=== PATIENT | male | born 1955 | race Caucasian/White ===

== ENCOUNTER 2017-12-16 13:45 | Outpatient (RCR) | payer MEDICARE, SELFPAY ==
[2017-12-09 14:05] VITALS: BP 99/66; PULSE 112; RESP 18; TEMP 36.6
--- NOTE | 2017-12-09 16:38 | HP.PCM_ITS ---
(1) Pressure ulcer of right heel, stage 1 Status: Acute Current Visit: Yes Code(s): L89.611 - Pressure ulcer of right heel, stage 1 (2) Paraplegia following spinal cord injury Status: Acute Current Visit: Yes Code(s): G82.20 - Paraplegia, unspecified History of Present Illness Date of Service: 12/09/17 Chief Complaint: Follow-up on left lateral malleolus ulcer History of Wound: 62-year-old white man with history of paraplegia and was discharged from the wound center in February fot left lateral ankle pressure injury. Noted about a week ago that after picking a callus off his heel, he developed a blister which he popped with a needle. He subsequently developed a draining ulcer. As of yesterday, he has had no drainage. He almost canceled his appointment today, but has a history of MRSA, so he wanted to make sure he was not getting an infection. Today, his ulceration is covered with a thin layer of epithelial tissue. He has been offloading with pillows behind his legs , keeps his heels and ankles floating. Past Medical History Past Medical History: Chronic Problems Decubitus ulcer of left ankle, stage 2 (Chronic) Surgical History: noncontributory Allergies/Adverse Reactions: Allergies cephalexin Allergy (Verified 12/09/17 14:13) Rash Sulfa (Sulfonamide Antibiotics) Allergy (Verified 12/09/17 14:13) Hives Home Medications: Ambulatory Orders Medication Instructions Recorded Baclofen 20 mg PO TID 12/26/16 Clonazepam [Klonopin] 1 mg PO QHS 12/26/16 Multivitamin [Daily Multiple 1 each PO QHS 12/26/16 Vitamin] Fluticasone 0.05% [Flonase Nasal 2 spray NASAL DAILY PRN 12/09/17 [place]] Magnesium 200 mg PO QHS 12/09/17 Nitrofurantoin Macrocrystal 50 mg PO QHS 12/09/17 [Macrodantin] Lives: Spouse/ Significant Other Smoking Status: Former smoker Tobacco Use: Non-smoker Alcohol: Rare Drugs: None Review of Systems Constitutional: Denies: Chills, Fever, Weight Change Eyes: Denies: Pain, Vision Change HEENT: Denies: Difficulty Hearing, Difficulty Swallowing, Sinus Congestion Cardiovascular: Denies: Chest Pain, Palpitations Respiratory: Denies: Cough, Shortness of Breath Gastrointestinal: Denies: Diarrhea, Nausea, Vomiting Genitourinary: Denies: Dysuria, Hematuria Musculoskeletal: Reports: - - Paraplegia Skin: Reports: Wounds - healed wounds L ankle, R heel Neurological: Reports: - - Paraplegia Psychiatric: Denies: Anxiety, Depression Endocrine: Denies: Heat/ Cold Intolerance, Polydipsia, Polyuria Hematologic/ Lymphatic: Denies: Easy Bruising, Easy Bleeding - Physical Exam Vital Signs Temp Pulse Resp BP 98 F 112 H 18 99/66 12/09/17 14:05 12/09/17 14:05 12/09/17 14:05 12/09/17 14:05 General: Alert, Oriented x3, Cooperative, No apparent distress Extremities: No clubbing, No cyanosis, No edema, Capillary Refill Less than 3 Seconds, No Calf Tenderness, Peripheral Pulses Normal Skin: No rashes, No breakdown, Ulcer/ Wound - Healed ulcers R heel, L lateral ankle Wound Measurements and Assessment WC - Nurse 1 - General Ulcer Measurement Start: 12/09/17 13:49 Freq: Status: Active Protocol: Activity Type Activity Date Activity User E-Sign Co-Sign Detail Recorded Client Recorded Date Recorded By Document 12/09/17 14:05 [facility] [id number] 12/09/17 14:10 [facility] 12/09/17 14:05 Wound Center Nurse 1 [Ulcer Assessment Protocol: HERB.WD.LOC] #5- RT MEDIAL HEEL -Combined with other wound No -Current Size (cm) - Length 1.7 -Current Size (cm) - Width 2.8 -Current Size (cm) - Depth 0.1 -Total Square Cm 4.76 -Date of Last Picture (Recall this 12/09/17 field) -Photo Taken Yes -Tunneling No -Undermining/Tunneling No -Exudate Amt Small (1-33%) -Exudate Type Serosanguineous -Wound Margin Distinct, Outline Attached -Granulation Amt Large (67-100%) -Granulation Quality Red -Slough/Fibrin No -Necrosis Amt None Present (0 %) -Structure Exposed None/Limited to Skin Breakdown -Texture ([place]-wound Skin Appearance) Callus -Moisture ([place]-wound Skin Appearance Dry/Scaly ) -Color ([place]-wound Skin Appearance) Erythema -Temperature ([place]-wound Skin No Abnormality Appearance) (Pt Warm) -Tenderness on Palpation ([place]-wound No Skin Appearance) -Ulcer Cleansing Rinsed/ Irrigated with Saline -Foul Odor after Cleansing No -Anesthetic Used 4% Lidocaine Solution WC - Nurse 2 - General Ulcer CM Notes Start: 12/09/17 13:49 Freq: Status: Active Protocol: Activity Type Activity Date Activity User E-Sign Co-Sign Detail Recorded Client Recorded Date Recorded By Document 12/09/17 14:30 MW [id number] 12/09/17 14:48 MW 12/09/17 14:30 Wound Center Nurse 2 [Procedure/Treatment] -Time 14:31 -Correct Patient Yes -Correct Side, Site, Position Yes -Correct Procedure Yes -Procedure Performed No -Post Debridement Size (cm) - Length 2.0 -Post Debridement Size (cm) - Width 3.2 -Post Debridement Size (cm) - Depth 0.1 -Total Square Cm 6.40 -Wound/Ulcer Outcome Not Healed -Ulcer Cleansing Rinsed/ Irrigated with Saline -Foul Odor after Cleansing No -Bioengineered Tissue No -Cetacaine [place] No -Bleeding Controlled with Pressure -Treatment Response Procedure Tolerated Well [See Physician Procedure note for Specifics] Pain Scale: 0-10 Numeric [Pain] -Is Patient Pain Free? Yes Musculoskeletal: No Tenderness to Palpation of Joints or Extremities Neurological: - - paraplegia Psych/Mental Status: Alert and oriented to time, place, person, mood and affect - wnl Debridement Note Post-Debridement Measurements/Treatment HERB - Nurse 2 - General Ulcer CM Notes Start: 12/09/17 13:49 Freq: Status: Active Protocol: Activity Type Activity Date Activity User E-Sign Co-Sign Detail Recorded Client Recorded Date Recorded By Document 12/09/17 14:30 MW [id number] 12/09/17 14:48 MW 12/09/17 14:30 Wound Center Nurse 2 #5- RT MEDIAL HEEL -Time 14:31 -Correct Patient Yes -Correct Side, Site, Position Yes -Correct Procedure Yes -Procedure Performed No -Post Debridement Size (cm) - Length 2.0 -Post Debridement Size (cm) - Width 3.2 -Post Debridement Size (cm) - Depth 0.1 -Total Square Cm 6.40 -Wound/Ulcer Outcome Not Healed -Ulcer Cleansing Rinsed/ Irrigated with Saline -Foul Odor after Cleansing No -Bioengineered Tissue No -Cetacaine [place] No -Bleeding Controlled with Pressure -Treatment Response Procedure Tolerated Well Pain Scale: 0-10 Numeric Is Patient Pain Free? Yes No debridement was completed today Assessment/Plan Active Problems Paraplegia following spinal cord injury (Acute) Pressure ulcer of right heel, stage 1 (Acute) Assessment: See diagnoses Plan: New pt exam. There is a healed stage 1 pressure injury R heel. Discussed importance of offloading. Apply hydrogel and adaptic today in clinic. Starting tomorrow, apply protective ointment such as Aquaphor Healing Ointment BID-TID to healed ulcers indefinitely. For hx MRSA colonization, bathe with hibiclens daily x 2 weeks then weekly for 1 year; Rx mupirocin 2% ointment, 22 gm, apply in nares with q-tip BID x 2 weeks. No clinical signs of acute bacterial infection bilateral lower extremities today, so no PO atbx prescribed. Pt does not have any open wounds on the lower extremities. Pt's reason for his appointment today is his R heel, but this is covered with a thin layer of epithelial tissue and is not open today. D/w pt that this thin layer of skin is quite fragile and he needs to protect the area well. Return in 1 week, if ulcer remains healed, he will be discharged at that time and can then follow up as needed.
[2017-12-16 13:45] VITALS: BP 130/81; PULSE 98; RESP 18; TEMP 36.2
--- NOTE | 2017-12-16 16:07 | PCM.WC.PN ---
(1) Pressure ulcer of right heel, stage 1 Status: Acute Current Visit: Yes Code(s): L89.611 - Pressure ulcer of right heel, stage 1 (2) Paraplegia following spinal cord injury Status: Acute Current Visit: Yes Code(s): G82.20 - Paraplegia, unspecified Type of Wound Date of Service: 12/16/17 Chief Complaint: Follow-up on left lateral malleolus ulcer History of Wound: 62-year-old white man with history of paraplegia and was discharged from the wound center in February fot left lateral ankle pressure injury. Noted about a week ago that after picking a callus off his heel, he developed a blister which he popped with a needle. He subsequently developed a draining ulcer. As of yesterday, he has had no drainage. He almost canceled his appointment today, but has a history of MRSA, so he wanted to make sure he was not getting an infection. Today, his ulceration is covered with a thin layer of epithelial tissue. He has been offloading with pillows behind his legs, keeps his heels and ankles floating. 12/16/17--Notes a small dot of clear drainage in the center, but the remainder of the area remains healed. Has been using collagen hydrogel, adaptic, dry gauze daily. Continues to offload. Progress of Wound: Small superficial area open in the center. - Physical Exam Vital Signs Temp Pulse Resp BP 97.1 F L 98 18 130/81 H 12/16/17 13:45 12/16/17 13:45 12/16/17 13:45 12/16/17 13:45 General: Alert, Oriented x3, Cooperative, No apparent distress Skin: Ulcer/ Wound - Medial/posterior R heel with no erythema, no pus, no malodor, no increased warmth, no TTP of wound or jeanette-wound area. No clinical signs of acute bacterial infection noted. See nurse's wound assessment. Wound Measurements and Assessment HERB - Nurse 1 - General Ulcer Measurement Start: 12/09/17 13:49 Freq: Status: Active Protocol: Activity Type Activity Date Activity User E-Sign Co-Sign Detail Recorded Client Recorded Date Recorded By Document 12/16/17 13:45 [facility] [id number] 12/16/17 13:48 [facility] 12/16/17 13:45 Wound Center Nurse 1 [Ulcer Assessment Protocol: HERB.WD.LOC] #5- RT MEDIAL HEEL -Combined with other wound No -Current Size (cm) - Length 0.1 -Current Size (cm) - Width 0.1 -Current Size (cm) - Depth 0.1 -Total Square Cm 0.01 -Photo Taken No -Epithelialization None Present -Tunneling No -Undermining/Tunneling No -Circular Undermining No -Exudate Amt None Present (0 %) -Wound Margin Flat & Intact -Granulation Amt Large (67-100%) -Granulation Quality [place] -Slough/Fibrin No -Structure Exposed N/A -Texture ([place]-wound Skin Appearance) Assessed Callus -Moisture ([place]-wound Skin Appearance Assessed ) -Temperature ([place]-wound Skin No Abnormality Appearance) (Pt Warm) -Tenderness on Palpation ([place]-wound No Skin Appearance) -Ulcer Cleansing Rinsed/ Irrigated with Saline -Foul Odor after Cleansing No -Anesthetic Used 4% Lidocaine Solution [Edema Assessment] -Lower Limb Edema Present NA HERB - Nurse 2 - General Ulcer CM Notes Start: 12/09/17 13:49 Freq: Status: Active Protocol: Activity Type Activity Date Activity User E-Sign Co-Sign Detail Recorded Client Recorded Date Recorded By Document 12/16/17 14:39 MW [id number] 12/16/17 14:41 MW 12/16/17 14:39 Wound Center Nurse 2 [Procedure/Treatment] #5- RT MEDIAL HEEL -Time 14:39 -Correct Patient Yes -Correct Side, Site, Position Yes -Correct Procedure Yes -Procedure Performed No -Post Debridement Size (cm) - Length 0.1 -Post Debridement Size (cm) - Width 0.1 -Post Debridement Size (cm) - Depth 0.1 -Total Square Cm 0.01 -Wound/Ulcer Outcome Not Healed -Ulcer Cleansing Rinsed/ Irrigated with Saline -Foul Odor after Cleansing No -Bioengineered Tissue No -Cetacaine [place] No -Bleeding Controlled with NA -Treatment Response Procedure Tolerated Well [See Physician Procedure note for Specifics] Pain Scale: 0-10 Numeric [Pain] -Is Patient Pain Free? Yes Debridement Note Post-Debridement Measurements/Treatment HERB - Nurse 2 - General Ulcer CM Notes Start: 12/09/17 13:49 Freq: Status: Active Protocol: Activity Type Activity Date Activity User E-Sign Co-Sign Detail Recorded Client Recorded Date Recorded By Document 12/09/17 14:30 MW [id number] 12/09/17 14:48 MW Document 12/16/17 14:39 MW [id number] 12/16/17 14:41 MW 12/09/17 12/16/17 14:30 14:39 Wound Center Nurse 2 #5- RT MEDIAL HEEL -Time 14:31 14:39 -Correct Patient Yes Yes -Correct Side, Site, Position Yes Yes -Correct Procedure Yes Yes -Procedure Performed No No -Post Debridement Size (cm) - Length 2.0 0.1 -Post Debridement Size (cm) - Width 3.2 0.1 -Post Debridement Size (cm) - Depth 0.1 0.1 -Total Square Cm 6.40 0.01 -Wound/Ulcer Outcome Not Healed Not Healed -Ulcer Cleansing Rinsed/ Rinsed/ Irrigated with Irrigated with Saline Saline -Foul Odor after Cleansing No No -Bioengineered Tissue No No -Cetacaine [place] No No -Bleeding Controlled with Pressure NA -Treatment Response Procedure Procedure Tolerated Well Tolerated Well Pain Scale: 0-10 Numeric Is Patient Pain Free? Yes Yes No debridement was completed today Assessment/Plan Active Problems Paraplegia following spinal cord injury (Acute) Pressure ulcer of right heel, stage 1 (Acute) Assessment: See diagnoses Plan: Exam. A total of 15minutes was spent face to face with the patient, and over half of that time was spent on counseling, coordination of care, and discussing his diagnoses. Pt noted a small amount of drainage, so he has been applying collagen hydrogel, adaptic, dry gauze daily. Notes daily improvement, and drainage almost reasolved. Continue this until drainage resolves, then apply aquaphor or vaseline BID-TID to healed ulcer. Discussed importance of offloading. Apply hydrogel and adaptic today in clinic. Return in 2 weeks, if ulcer is again healed, he will be discharged at that time and can then follow up as needed.
--- NOTE | 2017-12-16 16:11 | PN.PCM_ITS ---
(1) Pressure ulcer of right heel, stage 1 Status: Acute Current Visit: Yes Code(s): L89.611 - Pressure ulcer of right heel, stage 1 (2) Paraplegia following spinal cord injury Status: Acute Current Visit: Yes Code(s): G82.20 - Paraplegia, unspecified Type of Wound Date of Service: 12/16/17 Chief Complaint: Follow-up on left lateral malleolus ulcer History of Wound: 62-year-old white man with history of paraplegia and was discharged from the wound center in February fot left lateral ankle pressure injury. Noted about a week ago that after picking a callus off his heel, he developed a blister which he popped with a needle. He subsequently developed a draining ulcer. As of yesterday, he has had no drainage. He almost canceled his appointment today, but has a history of MRSA, so he wanted to make sure he was not getting an infection. Today, his ulceration is covered with a thin layer of epithelial tissue. He has been offloading with pillows behind his legs , keeps his heels and ankles floating. 12/16/17--Notes a small dot of clear drainage in the center, but the remainder of the area remains healed. Has been using collagen hydrogel, adaptic, dry gauze daily. Continues to offload. Progress of Wound: Small superficial area open in the center. - Physical Exam Vital Signs Temp Pulse Resp BP 97.1 F L 98 18 130/81 H 12/16/17 13:45 12/16/17 13:45 12/16/17 13:45 12/16/17 13:45 General: Alert, Oriented x3, Cooperative, No apparent distress Skin: Ulcer/ Wound - Medial/posterior R heel with no erythema, no pus, no malodor, no increased warmth, no TTP of wound or jeanette-wound area. No clinical signs of acute bacterial infection noted. See nurse's wound assessment. Wound Measurements and Assessment HERB - Nurse 1 - General Ulcer Measurement Start: 12/09/17 13:49 Freq: Status: Active Protocol: Activity Type Activity Date Activity User E-Sign Co-Sign Detail Recorded Client Recorded Date Recorded By Document 12/16/17 13:45 [facility] [id number] 12/16/17 13:48 [facility] 12/16/17 13:45 Wound Center Nurse 1 [Ulcer Assessment Protocol: HERB.WD.LOC] #5- RT MEDIAL HEEL -Combined with other wound No -Current Size (cm) - Length 0.1 -Current Size (cm) - Width 0.1 -Current Size (cm) - Depth 0.1 -Total Square Cm 0.01 -Photo Taken No -Epithelialization None Present -Tunneling No -Undermining/Tunneling No -Circular Undermining No -Exudate Amt None Present (0 %) -Wound Margin Flat & Intact -Granulation Amt Large (67-100%) -Granulation Quality [place] -Slough/Fibrin No -Structure Exposed N/A -Texture ([place]-wound Skin Appearance) Assessed Callus -Moisture ([place]-wound Skin Appearance Assessed ) -Temperature ([place]-wound Skin No Abnormality Appearance) (Pt Warm) -Tenderness on Palpation ([place]-wound No Skin Appearance) -Ulcer Cleansing Rinsed/ Irrigated with Saline -Foul Odor after Cleansing No -Anesthetic Used 4% Lidocaine Solution [Edema Assessment] -Lower Limb Edema Present NA HERB - Nurse 2 - General Ulcer CM Notes Start: 12/09/17 13:49 Freq: Status: Active Protocol: Activity Type Activity Date Activity User E-Sign Co-Sign Detail Recorded Client Recorded Date Recorded By Document 12/16/17 14:39 MW [id number] 12/16/17 14:41 MW 12/16/17 14:39 Wound Center Nurse 2 [Procedure/Treatment] #5- RT MEDIAL HEEL -Time 14:39 -Correct Patient Yes -Correct Side, Site, Position Yes -Correct Procedure Yes -Procedure Performed No -Post Debridement Size (cm) - Length 0.1 -Post Debridement Size (cm) - Width 0.1 -Post Debridement Size (cm) - Depth 0.1 -Total Square Cm 0.01 -Wound/Ulcer Outcome Not Healed -Ulcer Cleansing Rinsed/ Irrigated with Saline -Foul Odor after Cleansing No -Bioengineered Tissue No -Cetacaine [place] No -Bleeding Controlled with NA -Treatment Response Procedure Tolerated Well [See Physician Procedure note for Specifics] Pain Scale: 0-10 Numeric [Pain] -Is Patient Pain Free? Yes Debridement Note Post-Debridement Measurements/Treatment HERB - Nurse 2 - General Ulcer CM Notes Start: 12/09/17 13:49 Freq: Status: Active Protocol: Activity Type Activity Date Activity User E-Sign Co-Sign Detail Recorded Client Recorded Date Recorded By Document 12/09/17 14:30 MW [id number] 12/09/17 14:48 MW Document 12/16/17 14:39 MW [id number] 12/16/17 14:41 MW 12/09/17 12/16/17 14:30 14:39 Wound Center Nurse 2 #5- RT MEDIAL HEEL -Time 14:31 14:39 -Correct Patient Yes Yes -Correct Side, Site, Position Yes Yes -Correct Procedure Yes Yes -Procedure Performed No No -Post Debridement Size (cm) - Length 2.0 0.1 -Post Debridement Size (cm) - Width 3.2 0.1 -Post Debridement Size (cm) - Depth 0.1 0.1 -Total Square Cm 6.40 0.01 -Wound/Ulcer Outcome Not Healed Not Healed -Ulcer Cleansing Rinsed/ Rinsed/ Irrigated with Irrigated with Saline Saline -Foul Odor after Cleansing No No -Bioengineered Tissue No No -Cetacaine [place] No No -Bleeding Controlled with Pressure NA -Treatment Response Procedure Procedure Tolerated Well Tolerated Well Pain Scale: 0-10 Numeric Is Patient Pain Free? Yes Yes No debridement was completed today Assessment/Plan Active Problems Paraplegia following spinal cord injury (Acute) Pressure ulcer of right heel, stage 1 (Acute) Assessment: See diagnoses Plan: Exam. A total of 15minutes was spent face to face with the patient, and over half of that time was spent on counseling, coordination of care, and discussing his diagnoses. Pt noted a small amount of drainage, so he has been applying collagen hydrogel, adaptic, dry gauze daily. Notes daily improvement, and drainage almost reasolved. Continue this until drainage resolves, then apply aquaphor or vaseline BID-TID to healed ulcer. Discussed importance of offloading. Apply hydrogel and adaptic today in clinic. Return in 2 weeks, if ulcer is again healed, he will be discharged at that time and can then follow up as needed.
== END 2017-12-17 23:59 ==
LOC: WC 13:45
PROVIDERS: Family Provider Internal Medicine; PCP Internal Medicine; Visit Provider Podiatrist Foot & Ankle Surgery
DX: L89.611 Pressure ulcer of right heel, stage 1 (principal); G82.20 Paraplegia, unspecified; Z86.14 Personal history of Methicillin resistant Staphylococcus aureus infection; L89.522 Pressure ulcer of left ankle, stage 2; Z87.891 Personal history of nicotine dependence
CPT/HCPCS: 99212; 99213; G0463

== ENCOUNTER → 2021-11-05 13:55 | Outpatient (CLI) | payer MEDICARE, SELFPAY | PROVIDERS: PCP Family Medicine; Visit Provider Physician Assistant Surgical | DX: Z11.52 Encounter for screening for COVID-19 (principal) | CPT/HCPCS: 87635; U0005; U0003 ==

== ENCOUNTER 2022-12-27 09:56 | Outpatient (RCR) | payer MEDICARE, SELFPAY ==
[2022-12-27 10:18] VITALS: BP 140/80; PULSE 83; TEMP 36.2; BMI 20.3
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
== END 2022-12-27 14:22 | disposition home or self-care (01) ==
LOC: WC 09:56
PROVIDERS: PCP Family Medicine; Visit Provider Physician Assistant
DX: L89.151 Pressure ulcer of sacral region, stage 1 (principal); G82.20 Paraplegia, unspecified; Z87.891 Personal history of nicotine dependence; E78.5 Hyperlipidemia, unspecified
CPT/HCPCS: 99214; G0463

== ENCOUNTER 2025-08-30 07:51 | Emergency (ER) | payer MEDICARE, SELFPAY ==
[2025-08-30] VITALS (9 sets, daily range): BP systolic 113–160; BP diastolic 67–88; PULSE 55–76; RESP 16–18; TEMP 36.4–36.6; O2SAT 100; BMI 19.5
--- NOTE | 2025-08-30 08:09 | CT_ITS ---
PROCEDURE: STROKE CTA HEAD AND NECK W/CON 08/30/2025 REASON FOR EXAM: NEURO DEFICIT, ACUTE, STROKE SUSPECTED TECHNIQUE: Procedure Code: CTCTA.ST.HN Modality: CT Procedure: STROKE CTA HEAD AND NECK W/CON Multiplanar Sagittal and Coronal images were obtained. 3D post processing was performed CONTRAST: Isovue 370 VOLUME: 100 mL One or more dose reduction techniques were used (e.g., Automated exposure control, adjustment of the mA and/or kV according to patient size, use of iterative reconstruction technique). RADIATION DOSE SUMMARY: CTDlvol: 21 mGy DLP: 688.26 mGycm COMPARISON: Prior unenhanced CT scan of the brain done earlier in the day. FINDINGS: Aortic Arch: Normal size and branching pattern. Mild atherosclerotic plaque. Brachiocephalic and Subclavians: Mild atherosclerotic plaque without significant stenosis. RIGHT Carotid: Right CCA: Unremarkable. Right ICA: Unremarkable. Right ECA: Unremarkable. LEFT Carotid: Left CCA: Unremarkable. Left ICA: Minimal plaque formation. Maximum stenosis (NASCET): Less than 10% % Left ECA: Unremarkable. Vertebrals: Codominant. Arise from the subclavians. Both vertebrals form the basilar. RIGHT Vertebral: Unremarkable. LEFT Vertebral: Unremarkable. Anatomy: [place] anatomy is normal. Aneurysm or avm: I suspect a 2.9 mm aneurysm in a branch of the right middle cerebral artery in the region of the lateral right posterior frontal lobe in branches along the sylvian fissure. Anterior cerebral arteries: Unremarkable: Middle cerebral arteries: Unremarkable. Basilar artery: Unremarkable. Posterior cerebral arteries: Unremarkable. Other major branches of the posterior circulation: Unremarkable. Major venous structures: Unremarkable. Other findings: Neck: Lungs: Bones: CT/STROKE CTA Head AND Neck W/Con IMPRESSION: Findings suggestive of a 2.9 mm aneurysm in the branch of the right middle cere bral artery in the lateral right posterior frontal lobe just superior to the sylvian fissure. Stroke Alert: STROKE CTA HEAD AND NECK W/CON 2.9 mm aneurysm Right middle cereb ral artery superior to Sylvian fissure The critical findings in the findings and impression above were relayed directl y by me by telephone to Nathan Concepcion on 08/30/2025 at 9:45 am with readback verification. Reading Location: [place] [id number]
--- NOTE | 2025-08-30 08:09 | CT_ITS ---
PROCEDURE: STROKE BRAIN/HEAD WITHOUT CONT N/A REASON FOR EXAM: NEURO DEFICIT, ACUTE, STROKE SUSPECTED TECHNIQUE: Procedure Code: CTBR.ST Modality: CT Procedure: STROKE BRAIN/HEAD WITHOUT CONT Coronal and Sagittal reconstruction series were provided. One or more dose reduction techniques were used (e.g., Automated exposure control, adjustment of the mA and/or kV according to patient size, use of iterative reconstruction technique. RADIATION DOSE SUMMARY: CTDlvol: 44.99 mGy DLP: 796.11 mGycm COMPARISON: None FINDINGS: Brain: There is a 1.1 cm 1.1 cm focus of increased attenuation in the vertex of the right parietal lobe medially. Minimal surrounding edema. Focal bleed should be ruled out. Possible amyloid. CSF Spaces: Mild generalized cerebral atrophy Sinuses/Mastoids: Clear at visualized levels Bones: No abnormality. CT/STROKE Brain/Head without Cont IMPRESSION: Findings suggestive of a focal bleed measuring 1.1 cm 1.1 cm in the superior as pect of the right parietal lobe. Possible amyloid. Stroke Alert: Focal bleed Right parietal lobe. The critical findings in the findings and impression above were relayed directl y by me by telephone to Nathan Concepcion on 08/30/2025 at 9:21 am with readback verification. Recommend question amyloid. In Reading Location: [place] [address]
--- NOTE | 2025-08-30 08:09 | EKG12_ITS ---
Test Reason : NEURO SX Blood Pressure : */* mmHG Vent. Rate : 68 BPM Atrial Rate : 68 BPM P-R Int : 180 ms QRS Dur : 90 ms QT Int : 416 ms P-R-T Axes : 69 50 62 degrees QTcB Int : 442 ms Normal sinus rhythm Minimal voltage criteria for LVH, may be normal variant ( Sokolow-Bull ) Borderline ECG Confirmed by CATHY IBARRA, GISELE ([id number]), content editor GABE DOHERTY ([id number]) on 08/31/2025 8:23:14 AM Referred By: TB Confirmed By: GISELE MORGAN MD
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
[2025-08-30 09:13] LABS: Hematocrit 37.5 % (40-54); Hemoglobin 12.1 g/dL (13.0-16.5); Immature Granulocytes Count 0.010 X10^3/uL (0.0-0.0); Mean Corp Hgb Conc 32.3 g/dL (32-36); Mean Corpuscular Volume 92.6 fL (80-94); Mean Platelet Vol. 10.1 fl (6.2-12.0); NRBC Flagged by Analyzer 0 % (0-5); Platelet Count 247 K/mm3 (150-450); Prothrombin Time (Protime)PT. 13.2 SECONDS (11.7-14.9); RBC Distribution Width CV 13.2 % (11.6-14.6); RBC Distribution Width SD 44.3 fl (35.1-43.9); Red Blood Count 4.05 M/mm3 (4.6-6.2); White Blood Count 4.5 K/mm3 (4.4-11.0)
[2025-08-30 09:14] LABS: Partial Thromboplast Time 27.4 Seconds (24.1-36.2)
--- NOTE | 2025-08-30 09:15 | RAD_ITS ---
PROCEDURE: CHEST 1 VIEW 08/30/2025 REASON FOR EXAM: NEURO DEFICIT, ACUTE, STROKE SUSPECTED TECHNIQUE: Frontal view of the chest. COMPARISON: None FINDINGS: Hardware: EKG electrodes are seen. More karan fixation is seen throughout the thoracic spine for scoliosis correction. Heart: The heart size is normal. Lungs: Hyperinflation. The lungs are clear. Bones: Degenerative changes are identified within the thoracic spine. RAD/Chest 1 View IMPRESSION: Hyperinflation. The lungs are clear. Reading Location: [place] [address]
[2025-08-30] MEDS: 0.9% Normal Saline (500mL Bag) 500 ML 999 ML IV (09:44)
--- NOTE | 2025-08-30 09:59 | PCA ---
CALLED [facility] @ 0770 FOR TRANSFER TO [facility]. PATIENT NEEDS ICU AND NEEDS TO FLY. SENT FACE SHEET AND PUSHED IMAGES
== END 2025-08-30 11:09 | disposition other institution (70) ==
PROVIDERS: Emergency Provider Emergency Medicine; PCP Family Medicine; Visit Provider Emergency Medicine
DX: I62.9 Nontraumatic intracranial hemorrhage, unspecified (principal); G82.20 Paraplegia, unspecified; I10 Essential (primary) hypertension; R47.81 Slurred speech; Z87.891 Personal history of nicotine dependence; I67.1 Cerebral aneurysm, nonruptured; E78.5 Hyperlipidemia, unspecified
CPT/HCPCS: 70450; 70496; 70498; 71045; 82962; 85025; 85610; 85730; 93005; 96361; 96374; 99285; Q9967

== ENCOUNTER 2025-09-17 02:44 | Emergency (ER) | payer MEDICARE, SELFPAY ==
[2025-09-17] VITALS (16 sets, daily range): BP systolic 63–105; BP diastolic 42–82; PULSE 62–89; RESP 12–23; TEMP 35.1–37.3; O2SAT 96–100; BMI 19.4
--- NOTE | 2025-09-17 03:10 | EX.ED.DYSGE1 ---
HPI History of Present Illness Chief Complaint: Seizure Informant: patient and spouse/S.O. Narrative Narrative: Patient is a 70-year-old male with past medical history of paraplegia status post spinal cord injury cavernosum angiomas and hyperlipidemia. He was seen in our facility roughly 2 weeks ago secondary to seizure activity and at that time there was concern he had a ruptured aneurysm. He was sent to [facility] and he states that while there the MRI revealed he did not have an aneurysm but stable brain lesions. He states he was placed on Keppra and Vimpat and has been taking those as directed. He states that he has had increased shaking of his jaw and arms which he states is consistent with his focal seizures. His states however that in the last 24 hours or so he has had a fever up to 101 and that is the main reason for presentation this evening/morning. Patient also reports that he fell roughly a week ago and landed on his right knee/leg and at that time had sudden onset of swelling and bruising. He states he did not have the trauma looked at however and that despite giving it 1 week there has been no improvement in the swelling or bruising. [facility] Medical History Paraplegia Hyperlipemia Cavernous angioma Home Medications ?Medication ?Instructions ?Recorded ?Last Taken ?Type baclofen 20 mg tablet 20 mg PO TID 12/26/16 Unknown History clonazepam 1 mg tablet 1 mg PO QHS 12/26/16 Unknown History multivitamin (Daily Multiple 1 ea PO QHS 12/26/16 Unknown History tablet) clonazepam 0.5 mg tablet (Klonopin) 0.5 mg PO DAILY 09/17/25 Unknown History lacosamide 150 mg tablet (Vimpat) 150 mg PO BID 09/17/25 Unknown History levetiracetam 1,000 mg tablet 1,500 mg PO BID 09/17/25 Unknown History (Keppra) pregabalin 150 mg capsule (Lyrica) 150 mg PO BID 09/17/25 Unknown History Allergy/AdvReac Type Severity Reaction Status Date / Time cephalexin Allergy Rash Verified 12/09/17 14:13 Sulfa (Sulfonamide Allergy Hives Verified 12/09/17 14:13 Antibiotics) Family History Other Anxiety Familial cavernous cerebral angioma Surgical History History of spinal surgery Social History Smoking Status: Former smoker alcohol intake: never substance use type: does not use what type of physical activity do you participate in: other frequency: daily ROS ROS ED Constitutional Constitutional ED: Reports chills and fever(s) Eyes Eyes: Denies change in vision ENT ENT ED: Denies ear pain, rhinorrhea or sore throat Cardiovascular Cardiovascular: Denies chest pain Respiratory/Chest Respiratory/Chest: Denies cough or dyspnea Gastrointestinal Gastrointestinal: Denies abdominal pain, diarrhea, nausea or vomiting Musculoskeletal Musculoskeletal: Reports other Details: Positive right leg swelling Integumentary Reports other Details: Positive right leg swelling and bruising Known stage I sacral cubitus ulcer Neurologic Neurologic: Reports other Details: Positive focal seizures ; Denies headache(s) Hematologic/Lymphatic Hematologic/Lymphatic: Denies easy bleeding or easy bruising EXAM Physical Exam Const Vital Signs: 09/17/25 02:45 09/17/25 02:57 09/17/25 03:44 Temperature 98.5 F Temperature Source Oral Pulse Rate 89 69 Respiratory Rate 18 17 Blood Pressure 63/45 L 72/42 L 100/62 Blood Pressure Mean 51 52 74 Blood Pressure Source Blood Pressure Position Blood Pressure Location Pulse Ox 98 100 Oxygen Delivery Method Room Air Room Air 09/17/25 04:00 09/17/25 05:00 09/17/25 05:33 Temperature 97.6 F L 96.3 F L Temperature Source Oral Axillary Pulse Rate 73 68 64 Respiratory Rate 20 H 12 16 Blood Pressure 102/58 L 96/60 83/52 L Blood Pressure Mean 72 72 62 Blood Pressure Source Monitor Blood Pressure Position Semi-Fowlers Blood Pressure Location Right Arm Pulse Ox 100 96 100 Oxygen Delivery Method Room Air Room Air Room Air 09/17/25 05:48 09/17/25 06:00 09/17/25 06:16 Temperature 96.8 F L 95.3 F L Temperature Source Temporal Core Pulse Rate 63 62 Respiratory Rate 12 14 Blood Pressure 86/56 L 87/57 L Blood Pressure Mean 66 67 Blood Pressure Source Monitor Blood Pressure Position Semi-Fowlers Blood Pressure Location Right Arm Pulse Ox 100 100 Oxygen Delivery Method Room Air Room Air 09/17/25 06:48 09/17/25 07:05 09/17/25 08:00 Temperature 95.2 F L 95.1 F L 96.2 F L Temperature Source Core Core Core Pulse Rate 62 66 66 Respiratory Rate 13 13 14 Blood Pressure 88/58 L 93/60 99/82 H Blood Pressure Mean 68 71 87 Blood Pressure Source Monitor Monitor Blood Pressure Position Semi-Fowlers Supine Blood Pressure Location Right Arm Right Arm Pulse Ox 96 100 99 Oxygen Delivery Method Room Air Room Air Room Air Positive well nourished and well developed General Appearance ED: well developed HEENT HEENT Narrative: Normocephalic atraumatic No tongue or lip swelling no oral lesions no airway edema or compromise; no secondary findings in the posterior pharynx to suggest infection Eyes PERRL and EOMs intact bilaterally General Eye ED: Negative for scleral icterus Neck supple Neck Narrative: No nuchal rigidity or meningeal signs Chest Wall palpation of chest normal Resp normal respiratory effort and clear to auscultation bilaterally Resp Narrative: Breath sounds are diminished throughout but overall clear to auscultation without signs of respiratory distress Cardio regular rate and regular rhythm Rate: other Other Details: Radial and carotid pulses are equal and symmetric GI non-tender, non-distended and no masses GI Narrative: Soft nontender nondistended with hypoactive bowel sounds No voluntary guarding or rigidity No pulsatile mass or fluid wave No peritoneal signs Auscultation: hypoactive bowel sounds Palpation: soft Narrative: Stool is mucousy brown in color but Hemoccult positive Extremity Extremity Narrative: There is soft tissue swelling with ecchymosis to the anterior aspect of the right knee which tracks up into the medial thigh There is a joint effusion present over top the right knee Compartments are soft and compressible going against compartment syndrome Pelvis stable Patient is able to move upper extremities at baseline Bilateral lower extremities are flaccid consistent with history of paraplegia Neuro oriented x3 and CN's II-XII intact bilaterally Neuro Narrative: Chronic findings of lower extremity paraplegia Otherwise no focal neurologic deficit; no active seizure activity noted Sensorium / Orientation: alert Psych mental status grossly normal Skin Skin Narrative: Soft tissue swelling with ecchymosis to the right leg extending from mid thigh down to knee Stage I sacral decubitus ulcer without surrounding secondary findings for cellulitis or abscess. MDM MDM MDM Narrative Medical decision making narrative: Patient arrived to the ER awake and alert. reported a fever of 101 at home which he gave Tylenol around 1:30 in the morning which would make sense was temperature was normal upon arrival. With the reported fever and hypotension there is concern for systemic infection such as UTI versus pneumonia or viral infection such as COVID influenza or RSV. The patient has a known seizure disorder which patient and report are focal and typically cause left-sided jaw shaking and left upper extremity shaking without any derangement to his mental status. The reports she feels that these events have occurred more frequently despite him taking his Vimpat and Keppra as directed after his last hospitalization roughly 2 weeks ago. There is concern that patient has developed a systemic infection causing the lowering of the seizure threshold based on these reports. In order to assess for a potential cause of his symptoms and potential sepsis blood cultures urine cultures chest x-ray and basic labs were obtained. In order to assess for contusion versus fracture of the right leg x-rays of the pelvis and femur were also ordered. Blood work shows white count at 12 with mild elevation of neutrophils at 8.5. The lactic acid is normal going against systemic infection however or ischemia. The procalcitonin is mildly elevated at 0.5 heightening our concern for systemic infection. Because of the hypotension and reported fever and these values the patient was started on vancomycin and Zosyn. He was given a 30 mL/kg fluid bolus because of the hypotension and concern for sepsis. The 30 mL/kg fluid bolus equates to roughly 1600 mL and he was given 2 L. His blood work showed that his hemoglobin has dropped from 12.1-7.7 over the last 2 weeks and there is concern that with this drop and hypotension it is from bleeding into the thigh of the right leg from his fracture. Therefore 2 units of blood were ordered as well. The right leg was placed in a long-leg posterior splint for stabilization of the fracture fragment. After receiving his fluid and the blood the blood pressure remained soft but was typically 90/60 with MAP at 65 or higher and therefore I felt no need for pressors. While awaiting completion of his workup the patient reported feeling tired in the emergency department and had a change in mental status where he is difficult to arouse. Therefore at this time a blood sugar was checked and is normal at 109. A blood gas was obtained to check for hypoxia or hypercarbia and this was also normal. He would not open his eyes or speak but did localize pain with sternal rubbing of the chest and therefore received a GCS of 7. Despite the low GCS score he is maintaining his airway and oxygenating well so I feel no need for intubation. Based on the change in mental status he was then sent for a CT of the head as well as CT of the chest abdomen and pelvis to look for potential cause of missed infection. CT the head revealed a hyperattenuating lesion that was seen on August 30 and was reportedly a cavernous angioma when he had an MRI at [facility]. CT of the chest abdomen pelvis did not reveal any signs of infectious cause such as pneumonia appendicitis intestinal obstruction or perforation. At this time patient has received 30 mL/kg fluid bolus he has been given broad-spectrum antibiotics and vancomycin and Zosyn he is receiving 2 units of blood secondary to the acute blood loss anemia. Vitals are soft but overall stable. With his persistent hypotension femur fracture and anemia and now encephalopathy he is not safe for discharge. I feel he needs to be kept in the hospital for continued observation and antibiotics and to track his cultures as well as fixation of his fracture. I have not witnessed any seizure activity to suggest he is in status epilepticus and confirms that his seizures are focal and did not cause mental status changes and therefore I do not feel the need to load with any type of antiepileptic drug. As the patient is known to the [facility] system as he was just admitted to their facility roughly 2 weeks ago we will reach out to them once again to discuss transfer regarding his encephalopathy hypotension and femur fracture Patient had his right leg placed in a Ortho-Glass long-leg posterior tibial splint. The splint fit the fracture fragment in good approximation and stabilization. After application the capillary refill remained less than 3-second. Patient tolerated the procedure well without complication History & Record Review Discussion w/independent historian: Patient and Significant other Lab Data Attestation: I reviewed the patient's lab results. Labs: Laboratory Results - last 24 hr 09/17/25 09/17/25 09/17/25 03:16 04:20 05:03 WBC 12.0 H RBC 2.62 L Hgb 7.7 L Hct 23.8 L MCV 90.8 MCH 29.4 MCHC 32.4 RDW Std Deviation 41.6 RDW Coeff of Dolly 12.7 Plt Count 203 MPV 10.6 Immature Gran % (Auto) 0.700 Neut % (Auto) 70.3 H Lymph % (Auto) 11.6 L [place] % (Auto) 17.0 H Eos % (Auto) 0.2 Baso % (Auto) 0.2 Absolute Neuts (auto) 8.5 H Absolute Lymphs (auto) 1.39 Nucleated RBC % 0 Differential Comment SCANNED ESR 10 PT 16.5 H INR 1.3 APTT 35.6 Sodium 134 Potassium 4.1 Chloride 100 Carbon Dioxide 26.2 Anion Gap 8 BUN 25 H Creatinine 0.89 Estim Creat Clear Calc 63.26 Est GFR (MDRD) Non-Af 93 BUN/Creatinine Ratio 28.1 H Glucose 132 H Lactic Acid 1.3 Calcium 8.2 Magnesium 2.1 Total Bilirubin 0.44 Direct Bilirubin 0.25 AST 53 H ALT 40 Alkaline Phosphatase 120 C-React Prot Ext Range 224.00 H Total Protein 5.3 L Albumin 3.1 L Globulin 2.2 Lipase 35 Procalcitonin 0.50 H Urine Color Yellow Urine Clarity Clear Urine pH 6.0 Ur Specific [place] 1.010 Urine Protein 15 H Urine Glucose (UA) Normal Urine Ketones Negative Urine Occult Blood 10 H Urine Nitrite Negative Urine Bilirubin Negative Urine Urobilinogen Normal Ur Leukocyte Esterase 25 H Urine RBC 0 SEEN Urine WBC 0-5 SEEN Ur Squamous Epith Cells 0 SEEN Urine Bacteria 0 SEEN Urine Mucus 0 SEEN POC Glucose Blood Type O POSITIVE Antibody Screen NEGATIVE Crossmatch See Detail 09/17/25 06:04 WBC RBC Hgb Hct MCV MCH MCHC RDW Std Deviation RDW Coeff of Dolly Plt Count MPV Immature Gran % (Auto) Neut % (Auto) Lymph % (Auto) [place] % (Auto) Eos % (Auto) Baso % (Auto) Absolute Neuts (auto) Absolute Lymphs (auto) Nucleated RBC % Differential Comment ESR PT INR APTT Sodium Potassium Chloride Carbon Dioxide Anion Gap BUN Creatinine Estim Creat Clear Calc Est GFR (MDRD) Non-Af BUN/Creatinine Ratio Glucose Lactic Acid Calcium Magnesium Total Bilirubin Direct Bilirubin AST ALT Alkaline Phosphatase C-React Prot Ext Range Total Protein Albumin Globulin Lipase Procalcitonin Urine Color Urine Clarity Urine pH Ur Specific [place] Urine Protein Urine Glucose (UA) Urine Ketones Urine Occult Blood Urine Nitrite Urine Bilirubin Urine Urobilinogen Ur Leukocyte Esterase Urine RBC Urine WBC Ur Squamous Epith Cells Urine Bacteria Urine Mucus POC Glucose 109 H Blood Type Antibody Screen Crossmatch ABG Data ABG results: ABG 09/17/25 07:14 Specimen Type ART Sample Site L Radial pH 7.36 Bicarbonate Actual 24.1 Total CO2 25 Base Excess -1 O2 Saturation 96 ABG pCO2 42.9 ABG pO2 87 Malachi Test N/A O2 Delivery Device Room Air Vent Mode Not entered Radiography Diagnostic Testing: Clinical Impression(s) from Imaging Studies Chest X-Ray 09/17/25 04:00 IMPRESSION: No acute cardiopulmonary process Reading Location: [id number] Femur X-Ray 09/17/25 04:00 IMPRESSION: Acute comminuted displaced angulated distal femoral supracondylar fractures. Suprapatellar knee joint effusion. Periarticular soft tissue edema and swelling. Mild osteopenia of the visualized bones. Reading [facility] Pelvis [facility] 09/17/25 04:00 IMPRESSION: No evidence for acute abnormality. Reading Location: [facility] Brain CT 09/17/25 06:20 IMPRESSION: Hyperattenuating areas in the right frontal region. The larger lesion near the vertex is similar to the previous study. The other lesion is smaller. These may reflect areas of recent hemorrhage or other hyperattenuating mass. I recommend MRI without and with IV contrast for better characterization if clinically indicated. Additional findings as above. Reading Location: [facility] Chest/Abdomen/Pelvis CT 09/17/25 06:20 IMPRESSION: There are a few fluid-filled loops of small bowel which can be seen with enteritis. Possible sacral decubitus ulceration. Correlate clinically. Left hepatic lobe hemangioma. Bilateral renal cysts. No acute intrathoracic abnormality. Additional findings as above. Reading Location: [facility] 1 view chest x-ray as interpreted by the emergency medicine physician reveals no acute infiltrate pneumothorax or pleural effusion Pelvis x-ray as interpreted by the emergency medicine physician reveals no acute fracture dislocation or joint effusion Right femur x-ray as interpreted by the emergency medicine physician reveals 100% displaced distal femur fracture with significant soft tissue swelling/joint effusion Management Discussion w/another healthcare provider: Wastewater Supervisor Critical Care Time Critical Care Time: Yes Critical care time (excluding procedures): Discussing w/Patient &/or Family/Medicaid Billing Specialist, Discussing w/Consultants, Arranging Admission or Transfer and - (Critical care time of 37 minutes) Discharge Plan Triage Chief Complaint: Seizure ED Provider: Jorge Nunez Dx/Rx/DC Orders Clinical Impression: Encephalopathy, Acute blood loss anemia, Hypotension, Closed fracture of distal end of right femur, Pressure injury of sacral region, stage 1, Seizure disorder, Cavernous angioma, Paraplegia following spinal cord injury Prescriptions: No Action multivitamin [Daily Multiple] 1 EACH tablet 1 ea PO QHS clonazepam 1 MG tablet 1 mg PO QHS baclofen 20 MG tablet 20 mg PO TID pregabalin [Lyrica] 150 mg capsule 150 mg PO BID levetiracetam [Keppra] 1,000 mg tablet 1,500 mg PO BID lacosamide [Vimpat] 150 mg tablet 150 mg PO BID clonazepam [Klonopin] 0.5 mg tablet 0.5 mg PO DAILY Primary Care Provider: Michael Castaneda Referrals: Michael Castaneda MD [Primary Care Provider, Family Practice] Print Language: Haitian Disposition Disposition: Acute Care Hospital
[2025-09-17] MEDS: 0.9% Normal Saline (1000mL) 1,000 ML 999 ML IV ×2 (03:30→04:37)
[2025-09-17 03:32] LABS: Hematocrit 23.8 % (40-54); Hemoglobin 7.7 g/dL (13.0-16.5); Immature Granulocytes Count 0.080 X10^3/uL (0.0-0.0); Mean Corp Hgb Conc 32.4 g/dL (32-36); Mean Corpuscular Volume 90.8 fL (80-94); Mean Platelet Vol. 10.6 fl (6.2-12.0); NRBC Flagged by Analyzer 0 % (0-5); POSITIVE DIFFERENTIAL YES; Platelet Count 203 K/mm3 (150-450); Prothrombin Time (Protime)PT. 16.5 SECONDS (11.7-14.9); RBC Distribution Width CV 12.7 % (11.6-14.6); RBC Distribution Width SD 41.6 fl (35.1-43.9); Red Blood Count 2.62 M/mm3 (4.6-6.2); White Blood Count 12.0 K/mm3 (4.4-11.0)
[2025-09-17 03:33] LABS: Partial Thromboplast Time 35.6 Seconds (24.1-36.2)
[2025-09-17 03:36] LABS: Differential Indicated SCAN CRITERIA MET
[2025-09-17 03:55] LABS: Differential Comment SCANNED
--- NOTE | 2025-09-17 04:00 | RAD_ITS ---
PROCEDURE: RAD/Femur Min 2 Views
--- NOTE | 2025-09-17 04:00 | RAD_ITS ---
PROCEDURE: RAD/Chest 1 View (Portable)
--- NOTE | 2025-09-17 04:00 | RAD_ITS ---
PROCEDURE: RAD/Pelvis 1 or 2 Views
[2025-09-17 04:26] LABS: AST(SGOT) 53 U/L (<=37); Alanine Aminotransfer ALT/SGPT 40 U/L (<=46); Albumin, Serum 3.1 g/dL (3.4-4.8); Alkaline Phosphatase 120 U/L (40-129); Anion Gap 8 (5-15); BUN 25 mg/dL (4-19); BUN/Creat Ratio 28.1 RATIO (10-20); Bilirubin, Direct 0.25 mg/dL (0.00-0.30); Calcium,Total 8.2 mg/dL (7.6-11.0); Carbon Dioxide 26.2 mmol/L (21.0-32.0); Chloride 100 mmol/L (98-108); Estimated Creatinine Clearance 63.26 ml/min (50-250); Globulin 2.2 g/dL (2.2-4.2); Glucose 132 mg/dL (70-99); Potassium 4.1 mmol/L (3.3-5.1); Procalcitonin 0.50 ng/mL (<=0.10)
[2025-09-17 04:30] LABS: Lipase 35 U/L (13-75); Magnesium 2.1 mg/dL (1.5-2.2)
[2025-09-17 04:41] LABS: CRP 224.00 mg/L (0.0-3.0)
[2025-09-17 05:10] LABS: Mucous, Urine 0 SEEN /hpf (<or=2+); Red Blood Cells-Urine 0 SEEN /hpf (0-5); Squamous Epithelial Cells - UA 0 SEEN /hpf (0-5)
[2025-09-17] MEDS: Piperacil/Tazobactam 4.5 GM in 0.9% Normal Saline (100mL MB+) 100 ML IV (05:13)
[2025-09-17 05:15] LABS: Color, Urine Yellow (Yellow); Glucose, Dipstick Normal (Normal); Ketone-Dipstick Negative (Negative); Leukocyte Esterase-Dipstick 25 /ul (Negative); Nitrite-Dipstick Negative (Negative); Occult Blood-Urine 10 /ul (Negative); Protein-Dipstick 15 mg/dl (Negative); Specific Gravity, Urine 1.010 (1.002-1.030); Urine Bilirubin Dipstick Negative (Negative)
--- NOTE | 2025-09-17 05:55 | ED.RN ---
This RN in room with patient, pt not arousable to voice. Sternal rub without response. attempted to wake patient up. Notified Dr Nunez and MD in room to assess. ABG ordered, notified RT. Okay for core temp clarissa at this time. BG 109.
[2025-09-17] MEDS: Vancomycin HCl 1,500 MG in 0.9% Normal Saline (500mL Bag) 500 ML 250 MG IV (05:56)
[2025-09-17 06:19] LABS: Base Excess -1 mmol/L (-2 to +2); PO2 87 mmHG (75-100); SITE L Radial; SO2 96 % (94-98)
--- NOTE | 2025-09-17 06:20 | CT_ITS ---
PROCEDURE: CT/CT Chest, Abd, Pel w/Contrast
--- NOTE | 2025-09-17 06:20 | CT_ITS ---
PROCEDURE: CT/Brain/Head without Contrast
[2025-09-17 08:43] LABS: Ammonia 23.3 umol/L (16-60)
--- NOTE | 2025-09-17 10:15 | PCA ---
[facility] RM [facility] N2N: [phone]
== END 2025-09-17 11:39 | disposition short-term general hospital (02) ==
PROVIDERS: Emergency Provider Emergency Medicine; PCP Family Medicine; Visit Provider Emergency Medicine
DX: D62 Acute posthemorrhagic anemia (principal); G82.20 Paraplegia, unspecified; S72.451A Displaced supracondylar fracture without intracondylar extension of lower end of right femur, initial encounter for closed fracture; G40.909 Epilepsy, unspecified, not intractable, without status epilepticus; L89.151 Pressure ulcer of sacral region, stage 1; E78.5 Hyperlipidemia, unspecified; I95.9 Hypotension, unspecified; G93.40 Encephalopathy, unspecified; Z87.891 Personal history of nicotine dependence; D18.03 Hemangioma of intra-abdominal structures; Z79.899 Other long term (current) drug therapy; R50.9 Fever, unspecified
CPT/HCPCS: 29505; 36600; 51702; 70450; 71045; 71260; 72170; 73552; 74177; 80048; 80076; 81001; 82140; 82274; 82803; 82962; 83605; 83690; 83735; 84145; 85025; 85610; 85652; 85730; 86140; 86850; 86900; 86901; 87040; 87077; 87086; 87088; 87186; 87631; 96361; 96365; 96366; 96367; 99285; P9016; Q9967; A4216